=== PATIENT | female | born 2000 | race Two or more races ===

== ENCOUNTER 2025-07-28 12:13 | Emergency (ER) | payer MEDICAID, OTHER ==
[~2025-07-28] VITALS: Ht 167.6 cm; Wt 90.1 kg
--- NOTE | 2025-07-28 12:26 | ED.PDOC ---
Psychiatric HPI Comments HPI: 24 year old female presents to the emergency department via EMS with a chief complaint of anxiety. Per EMS, patient woke up today experiencing panic attack, called 911. Patient was recently seen by PCP, was requesting change of medication, was told she had to follow up with psychiatrist. Patient states she has been compliant with medication, are not helping, for the past month panic attacks and anxiety have worsen. Patient does not have date for LMP, states she is currently on control, denies any possibility of . Denies SI, HI, hallucinations, fever, chills, chest pain, shortness of breath, dizziness, headache. No other symptoms or modifying factors present at this time. Initial Vitals BP: 139/82 HR: 89 RR: 18 O2 Sat: 98% Temp: Past Medical history: schizophrenia Past Surgical history: Denies Medications: Dextran, Depakote, Haldol Social History: Denies smoking, ETOH, and drug use. Allergies: NKDA HPI: Poor Historian. REVIEW OF SYSTEMS: CONSTITUTIONAL: Denies acute: fever, diaphoresis, chills, generalized weakness. HEAD: Denies acute: headache, photophobia Eyes: Denies acute: Double vision, vision loss, eye pain, eye discharge. EARS: Denies acute: tinnitus, hearing loss, ear discharge, ear pain, THROAT: Denies acute: sore throat, swelling, difficulty swallowing , pain with swall owing, change in voice. NECK: Denies acute: neck pain, neck swelling, stiff neck. HEART: Denies acute : chest pain, palpitations, LUNGS: Denies acute: SOB, wheezing, cough, hemoptysis ABDOMEN: Denies acute: abdominal pain, Nausea, Vomiting, diarrhea, melena , hematemesis, hematochezia SKIN: Denies acute: rash, redness, lesions, itchiness. EXTREMITIES: Denies acute: calf pain, numbness, tingling, weakness, denies pain in extremity. Denies acute: Low back pain. Neuro: Denies acute: focal neurological deficit, motor or sensory focal neurological deficit, tremors, seizure like activity, confusion, dizziness, change in mental status, loss of bowel or bladder function, cauda equina like symptoms. : Denies acute: dysuria, hematuria, flank pain, increase in urinary frequency. PSYCH: Denies acute: hallucination, suicidal ideation, homicidal ideation. FEMALE: Denies acute: abnormal vaginal bleeding, foul odor, unusual discharge. PHYSICAL EXAM: General: ----no----acute distress, awake and alert. Head: normocephalic, atraumatic. Neck: supple, trachea is midline, no swelling. Throat: Normal phonation. Eyes:, no erythema, no purulent discharge, no proptosis, no icterus. Heart: regular rate, regular rhythm, no significant murmur appreciated. Lungs: no apparent respiratory distress, Able to speak in full sentences. No wheezing, no rhonchi, no crackles. No stridors Clear to auscultation bilaterally. Abdomen: non tender to palpation, non distended, soft, no guarding, no rebound, + bowel sounds. Neuro: Awake, Alert, oriented to name, self, situation, follows commands GCS=15. Speech is normal. Skin: no petechia, no purpura, no cyanosis, non-pale, not jaundice. Lower extremities: --no - Pitting edema no deformity, no focal swelling, no calf TTP. Makes eye contact. moves all four extremities. Face: no apparent facial droop. Ambulating in the ED independently. ED COURSE: DISCLAIMER: This medical document was created using an electronic medical record system with voice recognition software and computerized dictation system. Although this document has been carefully reviewed, there might still be some phonetic and typographical errors. Occasional wrong-word or "sound-alike" substitutions may have occurred due to the inherent limitations of voice recognition software. These areas are purely typographical due to imperfections of the software programs and do not reflect any compromise in the patient's medical care. Please read the chart carefully and recognize, using context, where these substitutions have occurred. Time Seen by MD: 12:16 Reviewed Notes: Medications, Allergies Information Source: Patient, Emergency Med Personnel Mode of Arrival: EMS Severity of Mental Status: Moderate Severity of Symptoms: Moderate Timing: Months Duration: Since onset Prehospital treatment: None Presents with: Depression, Anxiety Ingestion: None Current substance abuse: None Stressors: None History of: Depression, Anxiety, Schizophrenia Associated signs and symptoms: Depression, Anxiety Past Medical History PAST MEDICAL HISTORY: Anxiety, Schizophrenia Surgical History: Denies all surgeries GATE WATCHMAN History: No Pertinent GATE WATCHMAN History Family History Family History: Reviewed,noncontributory to illness, No family hx of Cancer, No family hx of DM, No family hx of Heart lisa, No family hx of HTN, No family hx ofKidney lisa, No family hx of Liver lisa, No family hx of Lung lisa, No family hx of Stroke Social History Smoker: Non-Smoker Alcohol: Denies ETOH Use Drugs: Denies Drug Use Lives In: Home Was a procedure done? Was a procedure done?: No X-Ray, Labs, Meds, VS Vital Signs Date Time Temp Pulse Resp B/P (MAP) Pulse Ox O2 Delivery O2 Flow Rate FiO2 07/28/25 18:00 98.2 99 18 129/69 (89) 97 98.2 07/28/25 18:00 99 18 97 Room Air* 0 21 07/28/25 12:13 98.2 89 18 139/82 98 98.2 Lab Test 07/28/25 12:48 07/28/25 12:46 Range/Units White Blood Count 7.1 4.4-10.8 10^3/uL Red Blood Count 5.11 4.0-5.20 10^6/uL Hemoglobin 10.4 L 12.2-16.2 g/dL Hematocrit 32.1 L 36.0-46.0 % Mean Corpuscular Volume 62.8 L 80.0-100.0 fL Mean Corpuscular Hemoglobin 20.3 L 28.0-32.0 pg Mean Corpuscular Hemoglobin Concent 32.3 32.0-36.0 g/dL Red Cell Distribution Width 15.0 H 11.8-14.3 % Platelet Count 314 140-450 10^3/uL Mean Platelet Volume 9.9 6.9-10.8 fL Neutrophils (%) (Auto) 70.5 37.0-80.0 % Lymphocytes (%) (Auto) 20.7 10.0-50.0 % Monocytes (%) (Auto) 8.3 0.0-12.0 % Eosinophils (%) (Auto) 0.2 0.0-7.0 % Basophils (%) (Auto) 0.3 0.0-2.0 % Neutrophils # (Auto) 5.0 1.6-8.6 10 ^3/uL Lymphocytes # (Auto) 1.5 0.4-5.4 10 ^3/uL Monocytes # (Auto) 0.6 0-1.3 10 ^3/uL Eosinophils # (Auto) 0 0-0.8 10 ^3/uL Basophils # (Auto) 0 0-0.2 10 ^3/uL Nucleated Red Blood Cells 0.1 % Sodium Level 138 136-145 mmol/L Potassium Level 4.6 3.5-5.1 mmol/L Chloride Level 104 98-107 mmol/L Carbon Dioxide Level 24 20-31 mmol/L Anion Gap 10 5-15 Blood Urea Nitrogen 16 9-23 mg/dL Creatinine 1.65 H 0.550-1.02 mg/dL Glomerular Filtration Rate Calc 44 >90 mL/min BUN/Creatinine Ratio 9.7 L 10.0-20.0 Serum Glucose 82 74-106 mg/dL Calcium Level 9.1 8.7-10.4 mg/dL Total Bilirubin 0.6 0.2-1.0 mg/dL Aspartate Amino Transferase (AST) 12 L 13-40 U/L Alanine Aminotransferase (ALT) 13 7-40 U/L Alkaline Phosphatase 80 46-116 U/L Total Protein 7.0 5.7-8.2 g/dL Albumin 3.8 3.2-4.8 g/dL Urine Color Yellow Yellow Urine Clarity Clear Clear Urine pH 5.5 5.0-9.0 Urine Specific [place] 1.005 1.001-1.035 Urine Protein Negative Negative Urine Ketones Negative Negative Urine Blood Negative Negative /uL Urine Nitrite Negative Negative Urine Bilirubin Negative Negative Urine Urobilinogen Normal Negative mg/dL Urine Leukocyte Esterase 3+ Negative /uL Urine RBC 1 0 - 4 /hpf Urine Microscopic WBC 29 H 0-5 /HPF Urine Squamous Epithelial Cells None seen <5 /hpf Urine Bacteria None seen None Seen /hpf Urine Glucose Normal Normal mg/dL Urine Opiates Screen Neg NEGATIVE Urine Fentanyl Screen Neg NEGATIVE Urine Barbiturates Screen Neg NEGATIVE Urine Phencyclidine Screen Neg NEGATIVE Urine Amphetamines Screen Neg NEGATIVE Urine Benzodiazepines Screen Neg NEGATIVE Urine Cocaine Screen Neg NEGATIVE Urine Cannabinoids Screen Neg NEGATIVE Current Medications Medications (Trade) Dose Ordered Sig/Vasiliy Route Start Time Stop Time Status Last Admin Olanzapine (ZyPREXA Tablet) 10 mg ONCE ONCE PO 07/28/25 17:45 07/28/25 17:46 DC 07/28/25 18:17 Lorazepam (Ativan Tablet) 1 mg ONCE ONCE PO 07/28/25 17:45 07/28/25 17:46 DC 07/28/25 18:17 Time of 1ST Reevaluation: 17:34 (Per TelePsych:Diagnosis: schizophrenia by history, unspecified anxietyPlan : Patient currently denies Si/hi but likely minimizes her other psychiatric symptoms and unclear compliance to medicationsRecommend to obtain collateral from family, observe overnight and re- eval Am to determine appropriate dispositionRecommend zyprexa 10mg po x1 now, Ativan 1mg po x1 now) Reevaluation 1ST: N/A Patient Education/Counseling: Diagnosis, Treatment Family Education/Counseling: Other Assigned to Dr. DR. WANG. Comments MDM: patient presented with the above HPI.--panic attack/anxiety----workup was initiated. patient was found with the above mentioned diagnosis. the following medications were ordered: please refer to order lists of meds and tests obtained by myself Dr. Sung. Patient ED course and VS have been stabilized. Patient has been reassessed in the ED and remained in a stable condition. Pertinent incidental findings were discussed with the patient and/or family. Patient/family voices understanding and is agreeable with plan. Patient has been observed in the ED adequate length of time to insure improvement/stability. Escalation of care considered: Consideration of escalation to observation or admission Tele psych was consulted. They requested to watch the patient overnight and reassessed again tomorrow after family can be interviewed for more information. Patient is awaiting social service evaluation in the morning and re-consultation of tele psych again. The care of this patient was signed out to my colleague . Patient has been medically cleared. All the reports of any imaging studies that were ordered by myself were reviewed by myself. Departure 1 Departure Time of Disposition: 13:52 Impression: Primary Impression: Anxiety Additional Impressions: Anemia UTI (urinary tract infection) Encounter for psychiatric assessment Disposition: 30 STILL A PATIENT Condition: Stable Discharged With: Self Critical Care Note Critical Care Time?: No I personally scribed for CLAUDINE SUNG DO ([email or web address]) on 07/28/25 at 12:26. Electronically submitted by Silva Tian ([email or web address]). CLAUDINE SUNG DO Jul 28, 2025 12:26
[2025-07-28 13:14] LABS: Hematocrit 32.1 % (36.0-46.0); Hemoglobin 10.4 g/dL (12.2-16.2); Mean Corpuscular Hemoglobin 20.3 pg (28.0-32.0); Mean Corpuscular Volume 62.8 fL (80.0-100.0); Nucleated Red Blood Cells % 0.1 %
[2025-07-28 13:18] LABS: Urine Protein, UAD Negative (Negative)
[2025-07-28 13:32] LABS: Alanine Aminotransferase 13 U/L (7-40); Alkaline Phosphatase 80 U/L (46-116); Anion Gap 10 (5-15); BUN/Creatinine Ratio 9.7 (10.0-20.0); Blood Urea Nitrogen 16 mg/dL (9-23); Calcium 9.1 mg/dL (8.7-10.4); Carbon Dioxide 24 mmol/L (20-31); Chloride 104 mmol/L (98-107); Glucose 82 mg/dL (74-106); Potassium 4.6 mmol/L (3.5-5.1); Sodium 138 mmol/L (136-145); Total Protein 7.0 g/dL (5.7-8.2)
[2025-07-28 13:33] LABS: Albumin 3.8 g/dL (3.2-4.8); Bilirubin, Total 0.6 mg/dL (0.2-1.0)
[2025-07-28 14:51] LABS: Amphetamine Screen, Urine Neg (NEGATIVE); Barbiturate Scree,Urine Neg (NEGATIVE); Benzodiazephine Screen, Urine Neg (NEGATIVE); Cannabinoid Screen, Urine Neg (NEGATIVE); Cocaine Screen, Urine Neg (NEGATIVE); Opiate Scree,Urine Neg (NEGATIVE); Phencyclidine Screen, Urine Neg (NEGATIVE)
--- NOTE | 2025-07-28 16:45 | DVHINCON2 ---
Date of Service if different f: Jul 28, 2025 Time of Service: 16:45 Consultation (KENNERDELL) Labs Laboratory Tests Test 07/28/25 12:46 07/28/25 12:48 Urine Color Yellow (Yellow) Urine Clarity Clear (Clear) Urine pH 5.5 (5.0-9.0) Urine Specific [place] 1.005 (1.001-1.035) Urine Protein Negative (Negative) Urine Ketones Negative (Negative) Urine Blood Negative /uL (Negative) Urine Nitrite Negative (Negative) Urine Bilirubin Negative (Negative) Urine Urobilinogen Normal mg/dL (Negative) Urine Leukocyte Esterase 3+ /uL (Negative) Urine RBC 1 /hpf (0 - 4) Urine Microscopic WBC 29 /HPF (0-5) Urine Squamous Epithelial Cells None seen /hpf (<5) Urine Bacteria None seen /hpf (None Seen) Urine Glucose Normal mg/dL (Normal) Urine Opiates Screen Neg (NEGATIVE) Urine Fentanyl Screen Neg (NEGATIVE) Urine Barbiturates Screen Neg (NEGATIVE) Urine Phencyclidine Screen Neg (NEGATIVE) Urine Amphetamines Screen Neg (NEGATIVE) Urine Benzodiazepines Screen Neg (NEGATIVE) Urine Cocaine Screen Neg (NEGATIVE) Urine Cannabinoids Screen Neg (NEGATIVE) White Blood Count 7.1 10^3/uL (4.4-10.8) Red Blood Count 5.11 10^6/uL (4.0-5.20) Hemoglobin 10.4 g/dL (12.2-16.2) Hematocrit 32.1 % (36.0-46.0) Mean Corpuscular Volume 62.8 fL (80.0-100.0) Mean Corpuscular Hemoglobin 20.3 pg (28.0-32.0) Mean Corpuscular Hemoglobin Concent 32.3 g/dL (32.0-36.0) Red Cell Distribution Width 15.0 % (11.8-14.3) Platelet Count 314 10^3/uL (140-450) Mean Platelet Volume 9.9 fL (6.9-10.8) Neutrophils (%) (Auto) 70.5 % (37.0-80.0) Lymphocytes (%) (Auto) 20.7 % (10.0-50.0) Monocytes (%) (Auto) 8.3 % (0.0-12.0) Eosinophils (%) (Auto) 0.2 % (0.0-7.0) Basophils (%) (Auto) 0.3 % (0.0-2.0) Neutrophils # (Auto) 5.0 10 ^3/uL (1.6-8.6) Lymphocytes # (Auto) 1.5 10 ^3/uL (0.4-5.4) Monocytes # (Auto) 0.6 10 ^3/uL (0-1.3) Eosinophils # (Auto) 0 10 ^3/uL (0-0.8) Basophils # (Auto) 0 10 ^3/uL (0-0.2) Nucleated Red Blood Cells 0.1 % Sodium Level 138 mmol/L (136-145) Potassium Level 4.6 mmol/L (3.5-5.1) Chloride Level 104 mmol/L (98-107) Carbon Dioxide Level 24 mmol/L (20-31) Anion Gap 10 (5-15) Blood Urea Nitrogen 16 mg/dL (9-23) Creatinine 1.65 mg/dL (0.550-1.02) Glomerular Filtration Rate Calc 44 mL/min (>90) BUN/Creatinine Ratio 9.7 (10.0-20.0) Serum Glucose 82 mg/dL (74-106) Calcium Level 9.1 mg/dL (8.7-10.4) Total Bilirubin 0.6 mg/dL (0.2-1.0) Aspartate Amino Transf (AST/SGOT) 12 U/L (13-40) Alanine Aminotransferase (ALT/SGPT) 13 U/L (7-40) Alkaline Phosphatase 80 U/L (46-116) Total Protein 7.0 g/dL (5.7-8.2) Albumin 3.8 g/dL (3.2-4.8) Appetite: Fair Appearance: Stated age, Older than stated age Psychomotor activity: Restless Behavioral: Bizaare, Withdrawn Eye contact: Intense Speech: Slowed Affect: Flat Mood: Anxious Thought processes: Sherrill Thought content: Paucity of thoughts Suicidal ideations: Absent Homicidal ideations: Absent Orientation: Person Memory intact: Poor Intellect: Marginal Abstractability: Marginal Concentration: Limited Attention: Limited Judgement: Marginal Insight: Poor Vitals Vital Signs Date Time Temp Pulse Resp B/P (MAP) Pulse Ox O2 Delivery O2 Flow Rate FiO2 07/28/25 12:13 98.2 89 18 139/82 98 98.2 Medication adjusted: Yes Labs ordered: No Diagnosis: schizophrenia by history, unspecified anxiety Plan : Patient currently denies Si/hi but likely minimizes her other psychiatric symptoms and unclear compliance to medications Recommend to obtain collateral from family, observe overnight and re-eval Am to determine appropriate disposition Recommend zyprexa 10mg po x1 now, Ativan 1mg po x1 now History of Present Illness Reason for Consult : patient presented reporting panic symptoms HPI : This is a 24-year-old female with history of schizophrenia (per chart review), presents here after calling 911 for panic attacks. Patient is evaluated via telepsychiatry, she is a very limited historian and guarded. She reports only history of anxiety despite prior diagnosis of schizophrenia. She reports her anxiety worsened 3 days go. She cannot identify any triggers. She reports she did inform her psychiatrist but told to call 911. Patient has considerable delays in responding to questions, likely thought blocking. When asked if having any auditory or visual hallucinations, she denies. Also denies that she had this in the past. She reports anxiety is usually random but daily for the last 3 days. She reports feeling like, "I cant breathe and freaking out" She denies any paranoid thoughts. She denies suicidal/homicidal ideation. She is requesting for admission here overnight due to her anxiety. She refuses inpatient psychiatric facility. Asked for phone number to talk with family, but she cannot recall any phone numbers. She also reports poor sleep due to her anxiety. She reports appetite as ok. Past Psychiatric History : She reports history of anxiety only. She cannot recall current psychotropic medications. She reports past psychiatric hospitalization but unable to recall any details. She denies past suicide attempts. Per chart review, hx of Haldol and Depakote use. She denies any connection to [facility] Past Medical History : She denies Social History : Patient reports living with parents and siblings. She is not employed or schooling. She reports taking a break from everything. She denies any drugs or alcohol use. her UDS is negative for substances. She denies any known family history DUNCAN OLIVA DNP Jul 28, 2025 16:45
[2025-07-28 18:00] VITALS: BP 129/69; PULSE 99; RESP 18; TEMP 98.2; O2SAT 97
[2025-07-28] MEDS: LORazepam 0.5 MG TAB PO ONE (18:17)
[2025-07-28] MEDS: OLANZapine 5 MG TAB PO ONE (18:17)
== END 2025-07-29 00:52 | disposition left against medical advice (07) ==
LOC: EDBD 12:13 → ER 12:13
DX: D64.9 Anemia, unspecified (principal); N39.0 Urinary tract infection, site not specified; F41.9 Anxiety disorder, unspecified; Z79.899 Other long term (current) drug therapy
CPT/HCPCS: 36415; 80053; 80307; 81001; 85025